=== PATIENT | male | born 1990 | race Caucasian/White ===

== ENCOUNTER 2016-12-12 22:36 | Emergency (ER) | payer OTHER, BC ==
--- NOTE | 2016-12-12 22:57 | EDM.PDOC ---
ED HPI BURN/SMOKE INHALATION - General Chief Complaint: Chemical Exposure Stated Complaint: CHEMICAL EXPOSURE Time Seen by Provider: 12/12/16 22:56 - History of Present Illness INITIAL COMMENTS - FREE TEXT/NARRATIVE: 26-year-old male presents emergency room after chemical exposure to his hands. Patient was cleaning the kidney dialysis unit and came across a trash can that someone put a open bottle of Centrisol. This is a hemodialysis acid concentrate. He did not ingest or inhale any of this exposure was limited to both hands and left forearm. Patient did try to wash it off. This chemical can cause skin irritation. - Related Data Allergies/ADRs: Allergies Allergy/AdvReac Type Severity Reaction Status Date / Time No Known Allergies Allergy Verified 03/19/16 08:17 Home Meds: Home Meds . [No Known Home Meds] 07/04/15 [History] Past Medical History Musculoskeletal History: Reports: Fracture Other Musculoskeletal History: right wrist Neurological History: Reports: Concussion, Head trauma Other Neuro History: 2015 Psychiatric History: Reports: Anxiety, Depression, Other (see below) Other Psychiatric History: asbergers - Past Surgical History HEENT Surgical History: Reports: Tonsillectomy Social & Family History - Family History Family Medical History: Noncontributory - Tobacco Use Smoking Status *Q: Never Smoker - Caffeine Use Caffeine Use: Reports: Coffee, Energy drinks, Tea - Alcohol Use Days Per Week of Alcohol Use: 0 - Recreational Drug Use Recreational Drug Use: No ED ROS GENERAL - Review of Systems Review Of Systems: See Below Constitutional: Denies: fever, chills HEENT: Reports: No symptoms Respiratory: Reports: No Symptoms Cardiovascular: Reports: No symptoms GI/Abdominal: Reports: No symptoms ED EXAM, BURN/SMOKE INHALATION - Physical Exam Exam: See Below Exam Limited By: No limitations General Appearance: alert, no apparent distress Respiratory: no respiratory distress, lungs clear, normal breath sounds Cardiovascular: regular rate, rhythm, no edema, no murmur Skin Exam: Other (She has some irritation mild redness over the dorsum of his hand specifically over the metacarpophalangeal joint and on his flexor surfaces of his digits in limited areas the patient appears to have some chronic dry skin especially in the flexor surfaces and irritation your seems to be a little bit worse.) Course - Vital Signs Last Recorded V/S: Last Vital Signs Temp 37.1 C 12/12/16 22:43 Pulse 78 12/12/16 22:43 Resp 18 12/12/16 22:43 BP 146/93 H 12/12/16 22:43 Pulse Ox 98 12/12/16 22:43 - Re-Assessments/Exams Free Text/Narrative Re-Assessment/Exam: 12/12/16 23:21 The patient was allowed to irrigate his hands for 15 minutes this helped and he is basically symptom-free a skin moisturizer was applied. Departure - Departure Time of Disposition: 23:44 Disposition: Home, Self-Care 01 Clinical Impression: Accidental exposure to acid Forms: ED Department Discharge Additional Instructions: Return to emergency room if any questions or problems. Use a good skin moisturizer after washing her hands and periodically through the day. Followup in the clinic for recheck early next week. [phone]
== END 2016-12-12 23:49 | disposition home or self-care (01) ==
LOC: JD.ED 22:36
CPT/HCPCS: 99282; 99283

== ENCOUNTER 2017-04-15 20:34 | Emergency (ER) | payer BC, OTHER ==
[2017-04-15 20:48] VITALS: BP 126/81
[2017-04-15] MEDS ORDERED: LORazepam 1 MG Tab PO ONE (21:49)
--- NOTE | 2017-04-15 21:50 | EDM.PDOCBH ---
ED HPI GENERAL MEDICAL PROBLEM - General Chief Complaint: Chest Pain Stated Complaint: CHEST PAIN,BODY ACHES Time Seen by Provider: 04/15/17 21:21 Source of Information: Reports: Patient History Limitations: Reports: No Limitations - History of Present Illness INITIAL COMMENTS - FREE TEXT/NARRATIVE: Patient is a 27-year-old male with a history of Asperger's who presents to the ED complaining of chest pain on and off for the past 10 months. Patient states he's been having frequent panic attacks. States it occurs almost daily. States 10 months ago he had a relationship with a woman that ended badly. 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 States he feels as he has been treated differently by all his coworkers. States when he has a panic attack his breathing rate increases causing discomfort to his chest and back. He occasionally has some numbness and tingling to his fingers causing carpal pedal spasms. Symptoms relieved after controlling his breathing. Again this has been a chronic issue for almost 10 months. He's never been formally diagnosed with anxiety or depression. He has not taken any medications for this. Patient does have a history of startle seizures as a child that resolved. He has no additional past medical history. Denies any fever/chills, shortness of breath, nausea vomiting, radiation of pain, dizziness, palpitations, or any additional complaints. Today he did have a panic attack at approximately 1900 this evening prompting evaluation in ED. Chest Pain Score (Numeric/FACES): 5 - Related Data Allergies Allergy/AdvReac Type Severity Reaction Status Date / Time No Known Allergies Allergy Verified 04/15/17 20:48 Home Meds: Home Meds . [No Known Home Meds] 07/04/15 [History] Past Medical History - Past Health History Medical/Surgical History: Denies Medical/Surgical History Musculoskeletal History: Reports: Fracture Other Musculoskeletal History: right wrist Neurological History: Reports: Concussion, Head Trauma Other Neuro History: 2015 Psychiatric History: Reports: Anxiety, Depression, Other (See Below) Other Psychiatric History: asbergers - Past Surgical History HEENT Surgical History: Reports: Tonsillectomy Social & Family History - Family History Family Medical History: Noncontributory - Tobacco Use Smoking Status *Q: Never Smoker - Caffeine Use Caffeine Use: Reports: Coffee, Energy Drinks, Tea - Alcohol Use Days Per Week of Alcohol Use: 0 - Recreational Drug Use Recreational Drug Use: No ED ROS GENERAL - Review of Systems Review Of Systems: See Below Constitutional: Denies: Fever, Chills, Malaise, Weakness, Fatigue, Decreased Appetite HEENT: Reports: No Symptoms Respiratory: Reports: Pleuritic Chest Pain. Denies: Shortness of Breath, Wheezing, Cough, Sputum Cardiovascular: Denies: Chest Pain, Dyspnea on Exertion, Lightheadedness, Palpitations, PND, Syncope Endocrine: Reports: No Symptoms GI/Abdominal: Reports: No Symptoms : Reports: No Symptoms Musculoskeletal: Reports: Back Pain Skin: Reports: No Symptoms Neurological: Denies: Confusion, Dizziness, Headache, Numbness, Seizure, Syncope , Tingling, Weakness Psychiatric: Reports: Anxiety. Denies: Hallucinations, Homicidal Ideation, Suicidal Ideation Hematologic/Lymphatic: Reports: No Symptoms Immunologic: Reports: No Symptoms ED EXAM, BEHAVIORAL HEALTH - Physical Exam Exam: See Below Exam Limited By: No Limitations General Appearance: Alert, WD/WN, No Apparent Distress Ears: Hearing Grossly Normal Nose: Normal Inspection Throat/Mouth: Normal Voice, No Airway Compromise Head: Atraumatic, Normocephalic Neck: Normal Inspection, Supple, Non-Tender, Full Range of Motion Respiratory/Chest: No Respiratory Distress, Lungs Clear, Normal Breath Sounds, No Accessory Muscle Use, Chest Non-Tender Cardiovascular: Normal Peripheral Pulses, Regular Rate, Rhythm, No Murmur GI/Abdominal: Normal Bowel Sounds, Soft, Non-Tender, No Organomegaly, No Distention Back Exam: Normal Inspection, Full Range of Motion, Other (mild pain with palpation to the right scapula. ) Extremities: Normal Inspection, Normal Range of Motion, Non-Tender, No Pedal Edema, Normal Capillary Refill Neurological: Alert, Normal Mood/Affect, CN II-XII Intact, Normal Cognition, No Motor/Sensory Deficits, Oriented x 3 Psychiatric: Alert, Normal Affect, Normal Cognition, Normal Mood, Oriented Skin Exam: Warm, Dry, Intact, Normal color, No rash COURSE, BEHAVIORAL HEALTH COMP - Course Vital Signs: Last Vital Signs Temp 97.8 F 04/15/17 20:43 Pulse 99 04/15/17 20:43 Resp 18 04/15/17 20:43 BP 126/81 04/15/17 20:43 Pulse Ox 99 04/15/17 20:43 Orders, Labs, Meds: Medications Discontinued Medications Generic Name Dose Route Start Last Admin Trade Name Mignon PRN Reason Stop Dose Admin Al Hydroxide/Mg Hydroxide 30 0 ml 04/15/17 21:54 04/15/17 22:06 ml/ Lidocaine HCl 15 ml PO 04/15/17 21:55 45 ml ONETIME ONE Administration Lorazepam 1 mg 04/15/17 21:49 04/15/17 22:05 Ativan PO 04/15/17 21:50 1 mg ONETIME ONE Administration Re-Assessment/Re-Exam: Order x-ray of the chest, EKG, GI cocktail, and also 1 mg Ativan by mouth. EKG sinus bradycardia at a rate of 54, early repolarization pattern, no acute ST changes noted. CXR: no acute findings. Reviewed with Dr. Morales. Final interpretation is pending. Patient is resting comfortably in bed. Anxiety has minimized. Patient has no discomfort at this time. He is ready to be discharged home. Discharge instructions as documented. Departure - Departure Time of Disposition: 23:08 Disposition: Home, Self-Care 01 Condition: Good Clinical Impression: Atypical chest pain, Panic attacks - Discharge Information Instructions: Panic Attacks, [id number], Nonspecific Chest Pain, [id number] Referrals: PCP,None [Primary Care Provider] - Bam Aceves [Physician] - César Howard MD [Physician] - Jaqueline Jimenez NP [Nurse Practitioner] - Forms: ED Department Discharge, ED Return to Work/School Form Additional Instructions: EKG and chest x-ray did not reveal any acute findings. Cause of chest discomfort related to increased breathing while having a panic attack. Due to the frequency of panic attacks suggest following up with Dr. Thornton tomorrow or the following day for reevaluation. It appears he may require an antianxiety medication. In addition you can schedule an appointment with Dr. Howard or Jacquelin Jimenez for further psychiatric evaluation and treatment of anxiety/panic attacks. No driving this evening since receiving a sedative medication. Return to the ED as needed for any new or worsening symptoms.
[2017-04-15] MEDS ORDERED: Alum Hydrox/Mag Hydrox/Simeth 30 ML, Lidocaine 2% 15 ML PO ONE ×2 (21:54)
--- NOTE | 2017-04-16 07:37 | CR ---
Chest: Portable view of the chest was obtained. Comparison: Previous chest x-ray of 07/04/15. Heart size and mediastinum are within normal limits for portable technique. Lungs are clear. Bony structures are grossly intact. Impression: 1. Nothing acute is appreciated on portable chest x-ray. Diagnostic code #1
== END 2017-04-15 23:30 | disposition home or self-care (01) ==
LOC: JD.ED 20:34
DX: F41.0 Panic disorder [episodic paroxysmal anxiety] (principal); Z98.890 Other specified postprocedural states
CPT/HCPCS: 71010; 93005; 99285; A9270; 99284

== ENCOUNTER 2017-04-24 18:28 | Emergency (ER) | payer BC ==
[2017-04-24 18:46] VITALS: BP 152/89
--- NOTE | 2017-04-24 19:52 | EDM.PDOC ---
ED HPI GENERAL MEDICAL PROBLEM - General Chief Complaint: Neurological Problem Stated Complaint: HAS SEIZURES/NOT FEELING WELL Time Seen by Provider: 04/24/17 19:04 Source of Information: Reports: Patient, Family (Mother, on the telephone), RN Notes Reviewed History Limitations: Reports: No Limitations - History of Present Illness INITIAL COMMENTS - FREE TEXT/NARRATIVE: The patient states that he has been experiencing seizures for the past few weeks , including last night, and would like a note for work, so that he does not have to work. He describes his seizures as right hand stiffness, hyperventilation with panic attacks, and shakiness. He states that he is awake and aware of what is going on when these events occur. He states that he has a history of "startle" seizures as a child. The patient's mother states that he was diagnosed with a seizure disorder (she does not recall the type) when he was 5 years old, that he experienced between the ages of 5 and 15 years old. She states that he was also diagnosed with Asperger's. She states that he was treated with Depakote and Keppra until he was 20 years old. The patient states that he was previously on Vyvanse, clonidine, and Lexapro, but that he has not been on any medications since he was 20. He states that he had a seizure episode last week, and was seen in this ED. Medical records indicate that the patient was seen in this ED 04/15/2017 after experiencing a panic attack while at work that evening. Medical evaluation included a chest radiograph and ECG. These were unremarkable. He was given a GI cocktail and 1 mg oral Ativan. He was discharged home with referrals to Dr. Aceves, Dr. Howard, and Jaqueline Jimenez. The patient tells me that he has not followed up with anyone so far, however, his mother states that he has an appointment to see a Psychiatrist, Dr. Garcia, from [place], on 04/29/2017. The patient does not have an appointment to see a Neurologist, however, the patient's mother states that a relative has seen a Dr. Quezada at [facility] in the past. - Related Data Allergies Allergy/AdvReac Type Severity Reaction Status Date / Time No Known Allergies Allergy Verified 04/24/17 18:41 Home Meds: Home Meds . [No Known Home Meds] 07/04/15 [History] Past Medical History Neurological History: Reports: Seizure (confirmed?) Psychiatric History: Reports: Anxiety, Depression, Other (See Below) (Asperger's ) - Past Surgical History HEENT Surgical History: Reports: Adenoidectomy, Oral Surgery ([place] teeth extraction), Tonsillectomy Neurological Surgical History: Reports: None Musculoskeletal Surgical History: Reports: None Social & Family History - Family History Family Medical History: Noncontributory - Tobacco Use Smoking Status *Q: Never Smoker - Caffeine Use Caffeine Use: Reports: Tea - Alcohol Use Alcohol Use History: Yes Days Per Week of Alcohol Use: 0 Alcohol Use Frequency: Socially - Recreational Drug Use Recreational Drug Use: No - Living Situation & Occupation Living situation: Reports: Single, Alone 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) ED ROS GENERAL - Review of Systems Review Of Systems: See Below Constitutional: Reports: No Symptoms HEENT: Reports: No Symptoms Respiratory: Reports: No Symptoms Cardiovascular: Reports: No Symptoms Endocrine: Reports: No Symptoms GI/Abdominal: Reports: No Symptoms : Reports: No Symptoms Musculoskeletal: Reports: No Symptoms Skin: Reports: No Symptoms Neurological: Reports: No Symptoms Psychiatric: Reports: No Symptoms Hematologic/Lymphatic: Reports: No Symptoms Immunologic: Reports: No Symptoms ED EXAM, GENERAL - Physical Exam Exam: See Below Exam Limited By: No Limitations General Appearance: Alert, WD/WN, No Apparent Distress Eye Exam: Bilateral Eye: Normal Inspection Ears: Normal External Exam, Hearing Grossly Normal Nose: Normal Inspection, No Blood Throat/Mouth: Normal Inspection, Normal Lips, Normal Voice, No Airway Compromise Head: Atraumatic, Normocephalic Neck: Normal Inspection, Full Range of Motion Respiratory/Chest: No Respiratory Distress, Lungs Clear, Normal Breath Sounds, No Accessory Muscle Use Cardiovascular: Normal Peripheral Pulses, Regular Rate, Rhythm, No Gallop, No JVD, No Murmur, No Rub Peripheral Pulses: 4+: Radial (L), Radial (R) GI/Abdominal: Normal Bowel Sounds, Soft, Non-Tender, No Organomegaly, No Distention, No Abnormal Bruit, No Mass (Male) Exam: Deferred Rectal (Males) Exam: Deferred Back Exam: Normal Inspection, Full Range of Motion, NT Extremities: Normal Inspection, Normal Range of Motion, Non-Tender, Normal Capillary Refill, No Pedal Edema Neurological: Alert, Oriented, No Motor/Sensory Deficits Psychiatric: Normal Affect Skin Exam: Warm, Dry, Intact, Normal Color, No Rash Lymphatic: No Adenopathy Course - Vital Signs Last Recorded V/S: Last Vital Signs Temp 36.4 C 04/24/17 18:42 Pulse 79 04/24/17 18:42 Resp 16 04/24/17 18:42 BP 152/89 H 04/24/17 18:42 Pulse Ox 98 04/24/17 18:42 - Re-Assessments/Exams Free Text/Narrative Re-Assessment/Exam: 04/24/17 19:52 Medical evaluation was offered to the patient, but since he just had an evaluation here in this ED on 04/15/2017, he declined further workup today. He does not want blood to be drawn. Clinically, I suspect that the patient is suffering from hyperventilation syndrome, although it is possible that he is suffering from a neurologic condition. After a long discussion with both the patient and his mother, they are requesting a note for work for the patient to not return until Saturday, 2016. I will refer the patient to the Neurologist Dr. Quezada. He was previously referred to the Psychiatrist Dr. Howard, and the patient's mother tells me that he already has an appointment to a psychiatrist by the name of Dr. Garcia, from [place], on 04/29/2017. Departure - Departure Time of Disposition: 19:47 Disposition: Home, Self-Care 01 Condition: Good Clinical Impression: Hyperventilation syndrome - Discharge Information Referrals: PCP,None [Primary Care Provider] - Celeste Quezada MD [Physician] - Forms: ED Department Discharge, ED Return to Work/School Form Additional Instructions: You were seen in the Emergency Room after experiencing numerous episodes of shakiness and hyperventilation. While your condition is most likely related to anxiety, a neurologic condition needs to be ruled out first. Please follow-up with the Neurologist Dr. Quezada at the next available appointment. Once neurologically cleared by Dr. Quezada you may then see a Psychiatrist for further evaluation. If any other problems, please do not hesitate to return to the ER.
== END 2017-04-24 21:00 | disposition home or self-care (01) ==
LOC: JD.ED 18:28
DX: F45.8 Other somatoform disorders (principal); F32.9 Major depressive disorder, single episode, unspecified; Z98.890 Other specified postprocedural states
CPT/HCPCS: 99283

== ENCOUNTER 2021-05-20 11:09 | Emergency (ER) | payer BC ==
[2021-05-20 11:36] VITALS: BP 136/96; PULSE 62
--- NOTE | 2021-05-20 11:46 | EDM.PDOC ---
ED HPI GENERAL MEDICAL PROBLEM - General Chief Complaint: Respiratory Problem Stated Complaint: COVID SX Time Seen by Provider: 05/20/21 11:22 Source of Information: Reports: Patient History Limitations: Reports: No Limitations - History of Present Illness INITIAL COMMENTS - FREE TEXT/NARRATIVE: 31-year-old male presents the emergency department with complaints of Covid type symptoms. Patient states that about 7 days ago he developed body aches, sore throat, fever, cough productive of green sputum, nausea. Symptoms have progressed to shortness of breath, decreased appetite and states he vomited twice today. Patient states that 6 days ago he did have a Covid test and it was negative. He states he is otherwise healthy. States he was a 1 pack-a-day smoker for the past 15 years however he states he quit about a week ago. Denies any alcohol use or recreational drug use. Abdomen Pain Score (Numeric/FACES): 5 - Related Data Allergies Allergy/AdvReac Type Severity Reaction Status Date / Time No Known Allergies Allergy Verified 04/24/17 18:41 Home Meds: Home Meds Amphetamine/Dextroamphetamine [Adderall] 25 mg PO DAILY 05/20/21 [History] Benzonatate [Tessalon Perle] 100 mg PO TID PRN #12 capsule 05/20/21 [Rx] Ondansetron [Zofran ODT] 4 mg PO Q6H PRN #12 tab.dis 05/20/21 [Rx] Vortioxetine Hydrobromide [Trintellix] 10 mg PO DAILY 05/20/21 [History] Past Medical History - Past Health History Medical/Surgical History: Denies Medical/Surgical History HEENT History: Reports: None Musculoskeletal History: Reports: Fracture Other Musculoskeletal History: right wrist Neurological History: Reports: Seizure Other Neuro History: 2015 Psychiatric History: Reports: Anxiety, Depression, Other (See Below) Other Psychiatric History: asbergers;. 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 ED EXAM, GENERAL - Physical Exam Exam: See Below Exam Limited By: No Limitations General Appearance: Alert, WD/WN, No Apparent Distress Ears: Normal External Exam, Hearing Grossly Normal Nose: Normal Inspection Throat/Mouth: Normal Inspection, Normal Lips, Normal Voice, No Airway Compromise, Other (Pharyngeal erythema) Head: Atraumatic Neck: Normal Inspection, Supple Respiratory/Chest: No Respiratory Distress, Lungs Clear, Normal Breath Sounds, No Accessory Muscle Use, Chest Non-Tender Cardiovascular: Normal Peripheral Pulses, Regular Rate, Rhythm, No Edema, No Murmur Peripheral Pulses: 2+: Radial (L), Radial (R) GI/Abdominal: Normal Bowel Sounds, Soft, Non-Tender, No Distention (Male) Exam: Deferred Rectal (Males) Exam: Deferred Back Exam: Normal Inspection Extremities: Normal Inspection Neurological: Alert, Oriented, Normal Cognition Psychiatric: Normal Affect, Normal Mood Skin Exam: Warm, Dry, Intact, Normal Color, No Rash Lymphatic: No Adenopathy Course - Vital Signs Text/Narrative:: Stated above, patient presents with Covid type symptoms. At the time of my assessment, he is hemodynamically stable with oxygen saturations at 99% on room air. However he does complain of feeling short of breath and having a cough. Also complains of a sore throat. Pharynx is unremarkable however there is some erythema noted. He does not have any tonsils due to what he states is sleep apnea. He is afebrile. Lung sounds are clear to auscultation. Will obtain a portable chest x-ray and Covid swab with influenza a and B. Last Recorded V/S: Last Vital Signs Temp 98.6 F 05/20/21 11:33 Pulse 62 05/20/21 11:33 Resp 20 05/20/21 11:33 BP 136/96 H 05/20/21 11:33 Pulse Ox 99 05/20/21 11:33 - Orders/Labs/Meds Orders: Active Orders 24 hr Category Date Time Status Chest 1V Frontal [CR] Stat Exams 05/20/21 11:41 Taken INFLUENZA A+B AG SCREEN [RM] Stat Lab 05/20/21 13:00 Ordered Labs: Laboratory Tests 05/20/21 Range/Units 13:00 SARS-CoV-2 RNA (IRENE) Negative (NEGATIVE) - Re-Assessments/Exams Free Text/Narrative Re-Assessment/Exam: 05/20/21 13:39 Nothing acute is appreciated on portable chest x-ray. Formal radiologist report is pending. 05/20/21 14:41 Patient's Covid test is negative. He will be discharged home with recommen dations that he follow-up with his primary care provider in about a week. Departure - Departure Time of Disposition: 14:42 Disposition: Home, Self-Care 01 Condition: Good Clinical Impression: Viral URI with cough - Discharge Information Prescriptions: Benzonatate [Tessalon Perle] 100 mg PO TID PRN #12 capsule PRN Reason: Cough Ondansetron [Zofran ODT] 4 mg PO Q6H PRN #12 tab.dis PRN Reason: Nausea/Vomiting Instructions: Viral Respiratory Infection, [id number] Referrals: PCP,None [Primary Care Provider] - Forms: ED Department Discharge Additional Instructions: You were seen in the emergency department today with Covid type symptoms. Covid swab was completed and this was negative. Chest x-ray was also completed and this did not show any areas of pneumonia or infection. You likely have some sort of viral infection, however viral infections cannot be treated with antibiotics as it does not work. Antibiotics are only used to treat bacterial infections. Recommend that you go home and rest, drink plenty of fluids. I have sent prescription for nausea medication called Zofran to your pharmacy. You may take 1 tab every 6 hours as needed for nausea or vomiting. Place the tab under your tongue and allow it to dissolve and then wait about 30 minutes prior to eating or drinking to allow it to take full effect. I have also sent a prescription for a medication called Tessalon Perlapurva to your pharmacy. You can take 1-2 tabs up to 3 times daily as needed for cough. Recommend that you follow-up with your primary care provider in about a week's time if not better. Sepsis Event Note (ED) - Evaluation Sepsis Screening Result: No Definite Risk - Focused Exam Vital Signs: Vital Signs Temp Pulse Resp BP Pulse Ox 05/20/21 11:33 98.6 F 62 20 136/96 H 99 - My Orders Last 24 Hours: My Active Orders 05/20/21 11:41 Chest 1V Frontal [CR] Stat 05/20/21 13:00 INFLUENZA A+B AG SCREEN [RM] Stat - Assessment/Plan Last 24 Hours: My Active Orders 05/20/21 11:41 Chest 1V Frontal [CR] Stat 05/20/21 13:00 INFLUENZA A+B AG SCREEN [RM] Stat
--- NOTE | 2021-05-21 06:39 | CR ---
Chest: Portable view of the chest was obtained. Comparison: Prior chest x-ray of 04/15/17. Heart size and mediastinum are normal. Lungs are clear with no acute parenchymal change. No acute osseous abnormality is seen. Impression: 1. Nothing acute is seen on portable chest x-ray. Diagnostic code #1
== END 2021-05-20 15:10 | disposition home or self-care (01) ==
LOC: JD.ED 11:09
DX: J06.9 Acute upper respiratory infection, unspecified (principal); Z87.891 Personal history of nicotine dependence; Z20.822 Contact with and (suspected) exposure to COVID-19
CPT/HCPCS: 71045; 71045-26; 99283; 99283-25; U0002

== ENCOUNTER 2024-02-29 19:45 | Emergency (ER) | payer SELFPAY ==
[2024-02-29 20:01] VITALS: BP 149/109; PULSE 53
[2024-02-29] MEDS: Ketorolac 30 MG/ML SDV IM ONE (20:45)
== END 2024-02-29 21:26 | disposition home or self-care (01) ==
LOC: JD.ED 19:45
DX: S76.011A Strain of muscle, fascia and tendon of right hip, initial encounter (principal); W01.0XXA Fall on same level from slipping, tripping and stumbling without subsequent striking against object, initial encounter
CPT/HCPCS: 73502; 96372; 99283; J1885